=== PATIENT | male | born 1950 | race Hispanic/Latino ===

== ENCOUNTER 2024-11-24 23:40 | Observation (INO) | payer MEDICARE ==
[~2024-11-24] VITALS: Ht 177.8 cm; Wt 59.9 kg
[~2024-11-24 23:40] MED LIST changes: -CEFTRIAXONE 1 GM VIAL ONE; -ETOMIDATE 40 MG/ 20ML VIAL IV ONE; -FENTANYL CITRATE/PF 100MCG/2 ML INJ ONE; -LACTATED RINGER'S 1,000 ML ONE; -LIDOCAINE HCL 2% LOCAL INJ 5 ML SDV VIAL INJ ONE; -PROPOFOL IV EMULSION 10 MG/ML 20 ML VIAL ONE
[2024-11-25] VITALS (12 sets, daily range): BP systolic 111–143; BP diastolic 12–91; PULSE 55–82; RESP 16–20; TEMP 97.3–98.8; O2SAT 95–100
[2024-11-25 00:08] LABS: BASOPHILS % 0.3 % (0.0-1.0); EOSINOPHILS % 2.4 % (0.0-6.0); LYMPHOCYTES % 18.0 % (18.0-39.1); MONOCYTES % 4.8 % (4.4-11.3); NEUTROPHILS % 74.1 % (38.7-80.0); RED CELL DISTRIBUTION WIDTH 14.3 % (11.7-14.4)
[2024-11-25] MEDS: SODIUM CHLORIDE 0.9% 1000ML 1,000 ML IV ONE (00:25)
[2024-11-25 00:32] LABS: EST GLOMERULAR FILTRATION RATE 102.0 ML/MIN (>=60)
[2024-11-25] MEDS ORDERED: IOPAMIDOL 370 MG/ML 100 ML INFUS..BTL INJ ONE (01:07)
[2024-11-25] MEDS ORDERED: SODIUM CHLORIDE FLUSH 10 ML SYR INJ PRN (02:30)
[2024-11-25] MEDS ORDERED: ONDANSETRON HCL INJ 2MG/ML 2ML 2 MG/ML VIAL IV PRN (02:30)
[2024-11-25] MEDS ORDERED: DIPHENHYDRAMINE HCL 25 MG CAP PO PRN (15:30)
[2024-11-25] MEDS ORDERED: SIMETHICONE 80 MG CHEW PO PRN (15:30)
[2024-11-25] MEDS ORDERED: ALBUTEROL/IPRATROPIUM 3 ML NEB NEB PRN (15:30)
[2024-11-25] MEDS ORDERED: MELATONIN 5 MG TABLET PO PRN (15:30)
[2024-11-25] MEDS ORDERED: LIDOCAINE 4% PATCH TP PRN (15:30)
[2024-11-25] MEDS ORDERED: ACETAMINOPHEN 325 MG TAB PO PRN (15:30)
[2024-11-25] MEDS ORDERED: DEXTROSE 50% SYRINGE 50 ML IV PRN (15:30)
[2024-11-25] MEDS ORDERED: HYDRALAZINE HCL 20 MG/ML VIAL IV PRN (15:30)
[2024-11-25] MEDS ORDERED: POTASSIUM CHLORIDE 20 MEQ TAB CR PO PRN (15:30)
[2024-11-25] MEDS ORDERED: DOCUSATE SODIUM 100 MG CAP PO PRN (15:30)
[2024-11-25] MEDS: CITRATE OF MAGNESIA 300ML BOTTLE PO ONE (16:49)
[2024-11-25] MEDS: LEVETIRACETAM 500 MG TAB PO SCH (16:50)
[2024-11-25] MEDS: DOCUSATE SODIUM 100 MG CAP PO SCH (16:50)
[2024-11-25] MEDS: ENOXAPARIN SOD INJ 40 MG/0.4 ML SYR SC SCH (16:50)
[2024-11-25] MEDS: ATORVASTATIN 20 MG TAB PO SCH (20:26)
[2024-11-26 03:15] VITALS: BP 124/79; PULSE 66; RESP 18; TEMP 97.5; O2SAT 99
[2024-11-26 06:14] LABS: BASOPHILS % 0.5 % (0.0-1.0); EOSINOPHILS % 3.4 % (0.0-6.0); LYMPHOCYTES % 16.0 % (18.0-39.1); MONOCYTES % 6.9 % (4.4-11.3); NEUTROPHILS % 72.8 % (38.7-80.0); RED CELL DISTRIBUTION WIDTH 14.6 % (11.7-14.4)
[2024-11-26 06:16] VITALS: PULSE 63; RESP 21; O2SAT 95
[2024-11-26 06:46] LABS: EST GLOMERULAR FILTRATION RATE 101.0 ML/MIN (>=60)
[2024-11-26] MEDS: AMLODIPINE BESYLATE 5 MG TAB PO SCH (09:00)
[2024-11-26] MEDS: TAMSULOSIN HCL 0.4 MG CAP PO SCH (10:04)
[2024-11-26] MEDS: ASPIRIN 81 MG CHEW TAB PO SCH (10:04)
[2024-11-26] MEDS: PANTOPRAZOLE SOD 40 MG TABEC PO SCH (10:04)
[2024-11-26] MEDS: LACTULOSE SYRUP 20 GM/30 ML UDC PO SCH (10:05)
[2024-11-26 10:35] VITALS: BP 124/79; PULSE 63; RESP 21; TEMP 97.5; O2SAT 95
[2024-11-26 11:38] VITALS: BP 102/70; PULSE 75; RESP 18; TEMP 97.4; O2SAT 100
[2024-11-26 15:50] VITALS: BP 119/87; PULSE 88; RESP 18; TEMP 97.6; O2SAT 97
== END 2024-11-26 16:50 | disposition home or self-care (01) ==
LOC: ER 23:58 → ERHOLD 11-25 02:21 → MED/SURG3 11-25 08:26
PROVIDERS: ADMIT Internal Medicine; ATTEND Internal Medicine
DX: K59.00 Constipation, unspecified (principal); I10 Essential (primary) hypertension; I69.920 Aphasia following unspecified cerebrovascular disease; G40.909 Epilepsy, unspecified, not intractable, without status epilepticus; E78.5 Hyperlipidemia, unspecified; K62.89 Other specified diseases of anus and rectum
CPT/HCPCS: 36415 ×2; 51700; 74018; 74177; 80048; 80053; 83735; 85025 ×2; 94799 ×2; 99284; G0378 ×2; J1650; J2470; J2543 ×2; J7030; Q9967

== ENCOUNTER → 2024-11-24 | Day surgery (SDC) | payer MEDICARE ==
[~2024-11-24] MED LIST: AMLODIPINE BESYL5 MG PO; ASPIRIN81 MG PO; ATORVASTATIN CA20 MG PO; CEFTRIAXONE 1 GM VIAL ONE; ETOMIDATE 40 MG/ 20ML VIAL IV ONE; FENTANYL CITRATE/PF 100MCG/2 ML INJ ONE; FLOMAX0.4 MG PO; LACTATED RINGER'S 1,000 ML ONE; LEVETIRACETAM500 MG PO; LIDOCAINE HCL 2% LOCAL INJ 5 ML SDV VIAL INJ ONE; PROPOFOL IV EMULSION 10 MG/ML 20 ML VIAL ONE
[2024-11-24 08:28] LABS: BASOPHILS % 0.4 % (0.0-1.0); EOSINOPHILS % 2.4 % (0.0-6.0); LYMPHOCYTES % 19.4 % (18.0-39.1); MONOCYTES % 5.7 % (4.4-11.3); NEUTROPHILS % 71.7 % (38.7-80.0); RED CELL DISTRIBUTION WIDTH 14.8 % (11.7-14.4)
[2024-11-24 10:15] VITALS: BP 134/67; PULSE 54; RESP 18; O2SAT 96
== END | disposition home or self-care (01) ==
LOC: EDBD 11-10 10:00 → OR 07:14
PROVIDERS: ATTEND Urology
DX: N21.0 Calculus in bladder (principal); N40.0 Benign prostatic hyperplasia without lower urinary tract symptoms; N32.89 Other specified disorders of bladder; I10 Essential (primary) hypertension; I48.91 Unspecified atrial fibrillation; E78.5 Hyperlipidemia, unspecified; G40.909 Epilepsy, unspecified, not intractable, without status epilepticus; I25.810 Atherosclerosis of coronary artery bypass graft(s) without angina pectoris; Z79.82 Long term (current) use of aspirin; Z79.899 Other long term (current) drug therapy; Z95.0 Presence of cardiac pacemaker; Z95.1 Presence of aortocoronary bypass graft; Z95.818 Presence of other cardiac implants and grafts; Z86.73 Personal history of transient ischemic attack (TIA), and cerebral infarction without residual deficits
CPT/HCPCS: 36415; 52000; 71046; 85025; 88112; 93005; J0696; J2704; J3010; J7121; 88305; J2003